=== PATIENT | male | born 1945 | race Caucasian/White ===

== ENCOUNTER 2017-07-14 13:36 | Emergency (ER) | payer OTHER ==
[~2017-07-14] VITALS: Ht 162.6 cm; Wt 55.8 kg
[2017-07-14] MEDS ORDERED: HYZAAR 50-12.51 EACH (13:49)
[2017-07-14] MEDS ORDERED: SIMVASTATIN20 MG (14:30)
[2017-07-14] MEDS ORDERED: LANSOPRAZOLE30 MG (14:30)
[2017-07-14] MEDS ORDERED: GLIMEPIRIDE2 MG (14:31)
== END 2017-07-14 18:11 | disposition home or self-care (01) ==
LOC: ER 13:36
DX: K21.9 Gastro-esophageal reflux disease without esophagitis (principal)

== ENCOUNTER 2017-07-16 20:04 | Emergency (ER) | payer OTHER ==
[~2017-07-16] VITALS: Ht 162.6 cm; Wt 54.9 kg
[~2017-07-16 20:04] MED LIST: GLIMEPIRIDE2 MG; HYZAAR 50-12.51 EACH; LANSOPRAZOLE30 MG; SIMVASTATIN20 MG
[2017-07-17] MEDS ORDERED: INTESTINEX680 M1 PO (03:24)
[2017-07-17] MEDS ORDERED: LEVSIN/SL0.125 MG PO (03:24)
[2017-07-17] MEDS ORDERED: ZANTAC300 MG PO (03:24)
[2017-07-17] MEDS ORDERED: ZOFRAN4 MG PO (03:24)
== END 2017-07-17 03:56 | disposition home or self-care (01) ==
LOC: ER 20:04
DX: K52.89 Other specified noninfective gastroenteritis and colitis (principal)

== ENCOUNTER 2017-07-19 21:51 | Emergency (ER) | payer OTHER ==
[~2017-07-19] VITALS: Ht 162.6 cm; Wt 55.3 kg
[~2017-07-19 21:51] MED LIST changes: +INTESTINEX680 M1 PO; +LEVSIN/SL0.125 MG PO; +ZANTAC300 MG PO; +ZOFRAN4 MG PO
== END 2017-07-20 08:02 | disposition home or self-care (01) ==
LOC: ER 21:51
DX: E11.649 Type 2 diabetes mellitus with hypoglycemia without coma (principal)

== ENCOUNTER 2017-08-31 18:17 | Emergency (ER) | payer OTHER ==
[~2017-08-31] VITALS: Ht 162.6 cm; Wt 53.5 kg
[2017-08-31] MEDS ORDERED: CARAFATE1 GM (18:30)
[2017-08-31] MEDS ORDERED: ENDOCET 5-3251 EACH (18:31)
[2017-09-01] MEDS ORDERED: GAS RELIEF125 M1 PO (12:26)
[2017-09-01] MEDS ORDERED: MIRALAX17 GM PO (12:26)
[2017-09-01] MEDS ORDERED: CARAFATE1 GM/10 ML PO (12:26)
== END 2017-09-01 14:14 | disposition home or self-care (01) ==
LOC: ER 18:17
DX: R10.13 Epigastric pain (principal); C18.4 Malignant neoplasm of transverse colon; C78.7 Secondary malignant neoplasm of liver and intrahepatic bile duct

== ENCOUNTER 2017-09-06 16:59 | Emergency (ER) | payer OTHER ==
[~2017-09-06] VITALS: Ht 162.6 cm; Wt 49.9 kg
[~2017-09-06 16:59] MED LIST changes: +CARAFATE1 GM; +CARAFATE1 GM/10 ML PO; +ENDOCET 5-3251 EACH; +GAS RELIEF125 M1 PO; +MIRALAX17 GM PO
[2017-09-06] MEDS ORDERED: PROTONIX40 MG (17:22)
== END 2017-09-06 23:53 | disposition home or self-care (01) ==
LOC: ER 16:59
DX: R18.8 Other ascites (principal); R10.13 Epigastric pain

== ENCOUNTER 2017-09-11 12:35 | Emergency (ER) | payer OTHER ==
[~2017-09-11] VITALS: Ht 162.6 cm; Wt 45.4 kg
[~2017-09-11 12:35] MED LIST changes: +PROTONIX40 MG
== END 2017-09-11 18:46 | disposition home or self-care (01) ==
LOC: ER 12:35
DX: G89.3 Neoplasm related pain (acute) (chronic) (principal); C78.5 Secondary malignant neoplasm of large intestine and rectum; C78.7 Secondary malignant neoplasm of liver and intrahepatic bile duct; M54.5 Low back pain